=== PATIENT | male | born 1950 | race Caucasian/White ===

== ENCOUNTER 2019-06-27 14:44 | Outpatient (CLI) | payer OTHER ==
--- NOTE | 2019-06-27 15:03 | RAD ---
EXAM: 2 views of the left tibia/fibula HISTORY: Leg pain after injury with a height today COMPARISON: None FINDINGS: There is no evidence of acute fracture or dislocation. Moderate medial distal soft tissue s welling is seen. No degenerative changes are seen in the knee or ankle. IMPRESSION: No evidence of acute osseous abnormality.
== END 2019-06-27 14:45 | disposition home or self-care (01) ==
LOC: BICRAD 14:44
PROVIDERS: ATTEND Family Medicine
DX: M79.605 Pain in left leg (principal)

== ENCOUNTER 2020-06-04 05:35 | Outpatient (CLI) | payer OTHER ==
[2020-06-04 11:10] LABS: Hemoglobin 14.3 g/dL (14.0-18.0); Mean Corpuscular HGB CONC 33.3 g/dL (32.0-36.0); Mean Corpuscular Volume 90.2 fL (78.0-98.0); Platelet Count 229 thou/uL (130-400); RBC Distribution Width 11.6 % (11.5-14.5); Red Blood Cell (RBC) Count 4.77 mill/uL (4.70-6.10)
[2020-06-04 11:17] LABS: PTT 31.1 sec (22.9-36.1); Prothrombin Time 12.9 sec (12.0-14.7)
[2020-06-04 11:34] LABS: Bacteria/HPF None Seen HPF (None Seen); Bilirubin Negative (Negative); Blood, Urine Negative (Negative); Clarity Clear (Clear); Glucose, Urine (Dipstick) Normal (Negative); Ketone, Urine Negative (Negative); Leukocyte Negative Leu/uL (Negative); Nitrite Negative (Negative); Protein, Urine (Dipstick) Negative (Neg-Trace); RBC/HPF 0-3 HPF (0-3); Specific Gravity, Urine 1.017 (1.002-1.036); Squamous Epithelial None Seen HPF (0-3); Urobilinogen Normal mg/dL (Less than 2); WBC/HPF 0-3 HPF (0-3)
[2020-06-04 12:29] LABS: Anion Gap 14 mmol/L (10-20); BUN (Urea Nitrogen) 14 mg/dL (8.4-25.7); Calc. Creatinine Clearance 0 mL/min (70-130); Calcium 9.4 mg/dL (7.8-10.44); Carbon Dioxide 25 mmol/L (23-31); Chloride 105 mmol/L (98-107); Estimated GFR-MDRD 81; Glucose 95 mg/dL (80-115); Potassium 4.2 mmol/L (3.5-5.1); Sodium 140 mmol/L (136-145)
--- NOTE | 2020-06-04 17:51 | EKG ---
Test Reason : Blood Pressure : / mmHG Vent. Rate : 083 BPM Atrial Rate : 083 BPM P-R Int : 158 ms QRS Dur : 088 ms QT Int : 358 ms P-R-T Axes : 066 046 040 degrees QTc Int : 420 ms Normal sinus rhythm Normal ECG No previous ECGs available Confirmed by KERRY SERRANO, DR. Matias ([id number]) on 06/04/2020 5:51:32 PM Referred By: OMER Confirmed By:DR. Florencio PAYNE MD
[2020-06-05 13:10] LABS: SARS-CoV-2 MS2 Positive; SARS-CoV-2 N Gene Negative; SARS-CoV-2 S Gene Negative; SARS-CoV-2 orf1ab Negative
== END 2020-06-04 05:36 | disposition home or self-care (01) ==
LOC: LABBT 05:35
PROVIDERS: ATTEND Surgery
DX: Z01.818 Encounter for other preprocedural examination (principal); Z11.59 Encounter for screening for other viral diseases; N40.1 Benign prostatic hyperplasia with lower urinary tract symptoms; R35.0 Frequency of micturition
CPT/HCPCS: 80048; 81001; 85027; 85610; 85730; 87086; 87635; 93005; 93010; U0003

== ENCOUNTER 2020-06-07 06:48 | Observation (INO) | payer OTHER ==
[2020-05-30 15:32] VITALS: BMI 20.9
[2020-06-07] MEDS ORDERED: Fentanyl 100 MCG/2 ML VIAL ONE (07:00)
[2020-06-07] MEDS ORDERED: Levofloxacin 500 mg/D5W 100 ml Premix Bag ONE (07:18)
[2020-06-07] MEDS ORDERED: Sodium Chloride 0.9% 10 ML ONE (08:30)
[2020-06-07] MEDS ORDERED: Iopamidol 50 ML FS ONE (08:30)
[2020-06-07] MEDS ORDERED: B & O ONE (09:53)
[2020-06-07] MEDS ORDERED: Phenazopyridine HCl 97.5 MG TABLET PO PRN (10:00)
[2020-06-07] MEDS ORDERED: hydrALAZINE 20 MG/ML VIAL SLOW IVP PRN (10:00)
[2020-06-07] MEDS ORDERED: diphenhydrAMINE 25 MG CAP PO PRN (10:00)
[2020-06-07] MEDS ORDERED: Hyoscyamine Sulfate SL 0.125 mg Tablet SL PRN (10:00)
[2020-06-07] MEDS ORDERED: Bisacodyl 10 MG SUPP PR PRN (10:00)
[2020-06-07] MEDS ORDERED: Mag-Al 1200 mg/1200 mg/30 ML UDCUP PO PRN (10:00)
[2020-06-07] MEDS ORDERED: Ondansetron PF 4 MG/2 ML Vial IVP PRN (10:00)
[2020-06-07] MEDS ORDERED: Morphine 2 MG/ML VIAL SLOW IVP PRN (10:00)
[2020-06-07] MEDS ORDERED: traMADol HCl 50 MG TAB PO PRN (10:02)
[2020-06-07] MEDS ORDERED: Promethazine HCl 25 MG/ML VIAL SLOW IVP PRN (10:08)
[2020-06-07] MEDS ORDERED: Promethazine HCl 25 MG/ML VIAL IM PRN (10:08)
[2020-06-07] MEDS ORDERED: Ondansetron HCl/PF 4 MG/2 ML Vial IVP PRN (10:08)
[2020-06-07] MEDS ORDERED: Hyoscyamine Sulfate SL 0.125 mg Tablet ONE ×2 (10:42→10:44)
[2020-06-07] MEDS ORDERED: PHENYLEPHRINE-NS 100 MCG/ML 10 ML SYRINGE ONE (11:13)
[2020-06-07] MEDS ORDERED: Ondansetron PF 4 MG/2 ML Vial ONE (11:13)
[2020-06-07] MEDS ORDERED: Dexamethasone 20 MG/5 ML VIAL ONE (11:13)
[2020-06-07] MEDS ORDERED: Lidocaine 1% PF 5 ML VIAL ONE (11:13)
[2020-06-07] MEDS ORDERED: PROPOFOL 200 MG/20 ML VIAL ONE (11:13)
--- NOTE | 2020-06-07 11:57 | OP ---
DATE OF PROCEDURE: 06/07/2020 SERVICES: Urology. PREOPERATIVE DIAGNOSIS: Benign prostatic hyperplasia with urinary obstruction. POSTOPERATIVE DIAGNOSIS: Benign prostatic hyperplasia with urinary obstruction. PROCEDURE PERFORMED: Transurethral resection of prostate. INDICATION FOR PROCEDURE: Mr. Pryor is a 69-year-old white male, who came to me with BPH and urinary symptoms. We worked him up for UroLift, but he had an intravesical median lobe and I recommended a TURP instead. Risks and benefits of surgery were discussed and he has agreed to proceed forward. DESCRIPTION OF PROCEDURE: After identification of armband and verification of consent, the patient was brought back to the operating room. He underwent general anesthesia with an LMA. He was then placed in dorsal lithotomy position and prepped and draped in usual sterile fashion. After appropriate time-out, a lubricated 26-Egyptian resectoscope sheath with visual obturator was attempted to pass in the urethra, but the meatus was somewhat narrow. [place] sounds were used to dilate the meatus up to 30-Egyptian at which point, the resectoscope sheath was able to pass easily through the urethra into the prostate and bladder. The prostate was hypertrophic as previously been described on outpatient cystoscopy. The bladder was otherwise unremarkable. The visual obturator was switched out for the bipolar prostate resectoscope loop and resection was started at the median lobe and carried out circumferentially from the bladder neck to the verumontanum, taking care not to go past the verumontanum or go too far into the bladder. 5 and 7 o'clock relaxing incisions on the bladder neck were made to further open up the bladder neck taking care to avoid injury to the ureteral orifices. Intervening tissue was then resected until we were close to, but not through the capsule. Upon completion, the prostate was extremely wide open. Meticulous hemostasis performed of all bleeding vessels until nothing could be visualized with the bladder mostly decompressed. All the prostate chips were evacuated using the [place] evacuator or through the resectoscope sheath. Upon completion of the procedure, both ureters were intact in orthotopic location. Bleeding was noted to be almost negligible and there were no chips remaining. The resectoscope sheath was then removed and a 22-Egyptian 3-way Alvarado catheter was placed with ease into the bladder. CBI was initiated, and 30 mL of sterile water placed into the balloon. The B and O suppository was placed into the patient's rectum, and taken out of positioning, awakened, taken to PACU for recovery in stable condition. COMPLICATIONS: None. ESTIMATED BLOOD LOSS: Minimal. RETAINED TUBES AND DRAINS: The 22-Egyptian 3-way Alvarado catheter on CBI. SPECIMENS: Prostate chips. DISPOSITION: The patient will be kept in the hospital overnight on CBI. We will plan a voiding trial in the morning and then discharge home. Job ID: [id number]
[2020-06-07] MEDS: Oxybutynin 5 MG TAB PO PRN ×2 (13:27→22:27)
[2020-06-07] MEDS: Acetaminophen 500 MG TAB PO PRN ×2 (16:31→22:27)
[2020-06-07] MEDS ORDERED: Prevnar 13-Val Conj/PF 0.5 ML SYRINGE IM ONE (18:00)
[2020-06-07] MEDS: Docusate 100 MG CAP PO SCH (20:00)
[2020-06-08] MEDS: Docusate 100 MG CAP PO SCH (08:05)
[2020-06-08 08:07] VITALS: BP 138/83; TEMP 97.9
--- NOTE | 2020-06-09 15:42 | PRG ---
DATE OF SERVICE: 06/08/2020 SUBJECTIVE: The patient states he is feeling very good. He has minimal to no pain. Denies any significant bladder spasms. He had an uneventful night. No chest pain or shortness of breath. OBJECTIVE: VITAL SIGNS: Temperature 97.9, pulse 74, respirations 18, blood pressure 138/83, and saturation is 98% on room air. GENERAL: No apparent distress. Communicative, alert. CARDIOVASCULAR: Regular rate and rhythm. ABDOMEN: Soft, nontender, nondistended. : Alvarado catheter in place with pink urine, which was removed during void trial. ASSESSMENT AND PLAN: A 69-year-old white male, status post transurethral resection of prostate. He is doing very well postop day #1. His CBI was stopped early in the morning and his catheter discontinued from my request. The patient subsequently then voided 2 voids with pinkish translucent urine without clots. He states there was mild dysuria, otherwise had no significant complaints. I do feel that the patient can be discharged home. I have gone over all of his discharge instructions as well as his discharge medications. I will see him back in approximately 1 to 2 weeks for postop check. Job ID: [id number]
--- NOTE | 2020-06-09 20:05 | DIS ---
DATE OF ADMISSION: 06/07/2020 DATE OF DISCHARGE: 06/08/2020 ADMITTING DIAGNOSIS: Benign prostatic hypertrophy with obstruction. DISCHARGE DIAGNOSIS: Benign prostatic hypertrophy with obstruction. PROCEDURE PERFORMED: While inpatient is transurethral resection of prostate. BRIEF HISTORY: Mr. Pryor is a 69-year-old white male, who has a history of BPH with obstruction. He was not a candidate for UroLift secondary to intravesical median lobe. I discussed transurethral resection of prostate with risks and benefits and the patient agreed to proceed forward with the surgery. The full H and P can be found in the scanned portion of the [facility]. HOSPITAL COURSE: After surgery (please see operative note for details), the patient was admitted to the hospital for CBI. He did well overnight without problems. The CBI was discontinued in the morning and the patient subsequently underwent a void trial. His urine was relatively clear on few voids. Therefore, he was found suitable to be discharged home. I went over all discharge instructions with him. DISPOSITION: Discharged to home. DISCHARGE CONDITION: Good. DISCHARGE MEDICATIONS: The patient will resume all of his home medications. In addition, he will be given a prescription for tramadol, Pyridium, oxybutynin, and docusate for symptomatic control. Discharge instructionsand when to call me were explained to the patient. I will see him in approximately 1 to 2 weeks for followup. Job ID: [id number]
== END 2020-06-08 10:18 | disposition home or self-care (01) ==
LOC: SDC 06:48 → SURG A 10:03
PROVIDERS: ADMIT Urology; ATTEND Urology
PROC: 0VT08ZZ Resection of Prostate, Via Natural or Artificial Opening Endoscopic (ICD-10-PCS; principal; 2020-06-07)
DX: N40.1 Benign prostatic hyperplasia with lower urinary tract symptoms (principal); N13.8 Other obstructive and reflux uropathy; R35.0 Frequency of micturition; R39.11 Hesitancy of micturition; R35.1 Nocturia; R39.15 Urgency of urination; R39.12 Poor urinary stream; K59.00 Constipation, unspecified; Z79.1 Long term (current) use of non-steroidal anti-inflammatories (NSAID)
CPT/HCPCS: 88305; 96365; G0378; J1100; J1956; J2405; J2704; J3010; Q9967